=== PATIENT | male | born 1945 | race Caucasian/White ===

== ENCOUNTER 2022-07-05 06:40 | Day surgery (SDC) | payer MEDICARE ==
[~2022-07-05] VITALS: Ht 177.8 cm; Wt 74.8 kg
[~2022-07-05 06:40] MED LIST: CHOLESTEROL PO; CIALIS20 MG PO; MULTI COMPLETE PO; OMEPRAZOLE DR40 MG PO; OTC PROBIOTIC PO; ZESTRIL5 M1 PO
[2022-07-05 08:10] VITALS: BP 126/74
== END 2022-07-05 08:13 | disposition home or self-care (01) ==
LOC: ORM 06:40
PROVIDERS: ATTEND Internal Medicine Gastroenterology
PROC: 0DB58ZX Excision of Esophagus, Via Natural or Artificial Opening Endoscopic, Diagnostic (ICD-10-PCS; principal; 2022-07-05)
PROC: 0DB78ZX Excision of Stomach, Pylorus, Via Natural or Artificial Opening Endoscopic, Diagnostic (ICD-10-PCS; 2022-07-05)
DX: K21.00 Gastro-esophageal reflux disease with esophagitis, without bleeding (principal); K22.70 Barrett's esophagus without dysplasia; K44.9 Diaphragmatic hernia without obstruction or gangrene; K29.70 Gastritis, unspecified, without bleeding